=== PATIENT | male | born 2000 | race African-American/Black ===

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

== ENCOUNTER 2021-11-13 18:45 | Emergency (ER) | payer SELFPAY ==
[~2021-11-13] VITALS: Ht 190.5 cm; Wt 115.6 kg
[~2021-11-13 18:45] MED LIST: AMOX500C PO
[2021-11-13 21:56] VITALS: BP 125/67
--- NOTE | 2021-11-13 22:35 | PHYS DOC ---
Past Medical History Past Medical History: No Pertinent History Past Surgical History: No Surgical History Smoking Status: Current Some Day Smoker Alcohol Use: Occasionally Drug Use: Marijuana General Adult EDM: Chief Complaint: Congestion HPI: HPI: Is a 21-year-old male who presents to the emergency department for nasal congestion, nonproductive cough, loss of taste and smell and shortness of breath that started 1 week ago. Patient denies fevers, nausea, vomiting, diarrhea, sick exposure. He has no medical problems. Review of Systems: Review of Systems: Constitutional: See HPI HENT: See HPI Respiratory: See HPI GI: See HPI Heart Score: C/O Chest Pain: N/A Risk Factors: Risk Factors: DM, Current or recent (<one month) smoker, HTN, HLP, family history of CAD, obesity. Risk Scores: Score 0 - 3: 2.5% MACE over next 6 weeks - Discharge Home Score 4 - 6: 20.3% MACE over next 6 weeks - Admit for Clinical Observation Score 7 - 10: 72.7% MACE over next 6 weeks - Early Invasive Strategies Allergies: Allergies: Allergies Coded Allergies Type Severity Reaction Last Updated Verified No Known Drug Allergies 06/19/18 No Physical Exam: PE: Constitutional: Well developed, well nourished, no acute distress, non-toxic appearance. [] HENT: Normocephalic, atraumatic, bilateral external ears normal, oropharynx moist, no oral exudates, nose normal. [] Eyes: PERRL, EOMI, conjunctiva normal, no discharge. [] Neck: Normal range of motion, no stridor Cardiovascular:Heart rate regular rhythm, no murmur [] Lungs & Thorax: Scattered wheezing Abdomen: Soft and flat Skin: Warm, dry, no erythema, no rash. [] Back: Normal range of motion Extremities: No tenderness, no cyanosis, no clubbing, ROM intact, no edema. [] Neurologic: Alert and oriented X 3, normal motor function, normal sensory function, no focal deficits noted. [] Psychologic: Affect normal, judgement normal, mood normal. [] Current Patient Data: Labs: Laboratory Tests Test 11/13/21 22:45 Influenza Type A Antigen Negative Influenza Type B Antigen Negative SARS-CoV-2 Antigen (Rapid) Negative Current Medications Medications (Trade) Dose Ordered Sig/Anita Route PRN Reason Start Time Stop Time Status Last Admin Dose Admin Prednisone (Prednisone) 60 mg 1X ONCE PO 11/13/21 23:00 11/13/21 23:01 DC 11/13/21 22:55 Albuterol/ Ipratropium (Duoneb) 3 ml 1X ONCE NEB 11/13/21 23:00 11/13/21 23:01 DC Vital Signs: Vital Signs Date Time Temp Pulse Resp B/P (MAP) Pulse Ox O2 Delivery O2 Flow Rate FiO2 11/13/21 21:56 97.5 61 18 125/67 (86) 98 Room Air 97.5 EKG: EKG: [] Radiology/Procedures: Radiology/Procedures: []PROCEDURE: CHEST PA & LATERAL Chest radiograph 11/13/2021 10:55 PM INDICATION: Shortness of air COMPARISON: None available TECHNIQUE: Frontal and lateral views of the chest are provided. FINDINGS: The cardiomediastinal silhouette is within normal limits. There are no pleural effusions. There is no pulmonary vascular congestion. There is no pneumothorax. The lungs are clear. No significant osseous abnormality is identified. IMPRESSION: No acute cardiopulmonary process. Electronically signed by: Sheryl Lange MD (11/13/2021 10:57 PM) [facility] DICTATED and SIGNED BY: SHERYL LANGE MD DATE: 11/13/212256 Course & Med Decision Making: Course & Med Decision Making Pertinent Labs and Imaging studies reviewed. (See chart for details) [] Patient presents for multiple viral symptoms like nasal congestion, n onproductive cough, loss of taste and smell and shortness of breath. Patient reports that he has a history of childhood asthma but he states he "grew out of it". Patient is noted to have wheezing on auscultation therefore he will be treated with steroids and breathing treatment. Patient will be tested for influenza and COVID and have a chest x-ray to rule out pneumonia. Flu and COVID testing were negative. Chest x-ray showed no acute findings. Patient's vital signs are stable and he is in no acute distress. Patient will be discharged home with an albuterol inhaler and steroid. I discussed with patient all findings and diagnostic testing as well as the need to follow-up with PCP for further evaluation and treatment or return to the ER if any new or worsening symptoms. Strict return precautions were also discussed at length. Patient voiced understanding and agreement with the plan. Patient is hemodynamically stable at the time of disposition. Deysi Disclaimer: Deysi Disclaimer: This electronic medical record was generated, in whole or in part, using a voice recognition dictation system. Departure Departure Impression: Primary Impression: Viral syndrome Disposition: HOME / SELF CARE / HOMELESS Condition: GOOD Referrals: NO PCP (PCP) Patient Instructions: Asthma, Adult, [id number], Cough, Adult Additional Instructions: You were seen in the emergency department today for congestion, cough and shortness of breath. We tested you for influenza and COVID and that was negative. Use Mucinex [id number] for your nasal congestion. You can also use Delsym [id number] for your cough. Your chest x-ray did not show any acute findings. You are being discharged home with a steroid and an albuterol inhaler. You can use the inhaler when you feel short of breath. Follow-up with your primary care provider tomorrow regarding your ER visit. Return to the emergency department if you develop shortness of breath, chest pain, weakness, high fevers refractory to treatment, intractable nausea or vomiting. Scripts Albuterol Sulfate (Proair Hfa) 8.5 Gm Hfa.aer.ad 1 PUFF INH PRN Q6HRS PRN for SHORTNESS OF BREATH for 7 Days, #1 EACH 0 Refills Prov: IRMA MATOS APRN 11/13/21 Prednisone (PREDNISONE) 50 Mg Tablet 1 TAB PO DAILY for 5 Days, #5 TAB 0 Refills Prov: IRMA MATOS APRN 11/13/21 IRMA MATOS APRN Nov 13, 2021 22:35
[2021-11-13] MEDS: predniSONE 20 MG TABLET PO ONE (22:55)
--- NOTE | 2021-11-13 23:00 | RAD ---
Chest radiograph 11/13/2021 10:55 PM INDICATION: Shortness of air COMPARISON: None available TECHNIQUE: Frontal and lateral views of the chest are provided. FINDINGS: The cardiomediastinal silhouette is within normal limits. There are no pleural effusions. There is no pulmonary vascular congestion. There is no pneumothorax. The lungs are clear. No significant osseous abnormality is identified. IMPRESSION: No acute cardiopulmonary process. Electronically signed by: Lyudmila Lange MD (11/13/2021 10:57 PM) [facility]
[2021-11-13 23:11] LABS: INFLUENZA A PATIENT NEGATIVE (NEGATIVE); INFLUENZA B PATIENT NEGATIVE (NEGATIVE)
[2021-11-13] MEDS ORDERED: PRED50TA PO (23:15)
[2021-11-13] MEDS ORDERED: ALBU2.5V8 INH (23:15)
[2021-11-13] MEDS: IPRATRPIUM/ALBUTEROL 0.5/2.5MG 3 ML NEBU. NEB ONE (23:29)
== END 2021-11-13 23:41 | disposition home or self-care (01) ==
LOC: ER 18:45
DX: B34.9 Viral infection, unspecified (principal); F17.200 Nicotine dependence, unspecified, uncomplicated; Z20.822 Contact with and (suspected) exposure to COVID-19
CPT/HCPCS: 71046; 87428; 94640; 99284; J7512